=== PATIENT | female | born 1985 | race Caucasian/White ===

== ENCOUNTER 2020-06-12 22:19 | Emergency (ER) | payer OTHER, SELFPAY ==
[2020-06-12 22:43] VITALS: BP 153/53; PULSE 78; RESP 16; TEMP 37.1; O2SAT 98; BMI 18.8
--- NOTE | 2020-06-13 00:30 | ED.GENADULT ---
HPI - General Adult General Chief complaint: General Medical Stated complaint: fever Time Seen by Provider: 06/12/20 23:09 Source: patient Mode of arrival: ambulatory Limitations: language barrier History of Present Illness HPI narrative: 35 y/o female with no PMH presents with tiredness, intermittent fevers, dry cough after exposure to her parents who were both found to be COVID positive. She states she last had fever 2 days ago. She took tylenol and it improved. She denies productive cough, chest pain, abd pain, N/V/D. Has not gotten a flu vaccine this year. complaint: Flu-like symptoms Onset (ago): day(s) (2) Location: chest Radiation: non-radiation Severity: moderate Quality: aching Pain Consistency: intermittent Relieving factors: rest Exacerbating factors: movement Associated symptoms: cough, fever/chills and malaise Treatments prior to arrival: none Related Data Previous Rx's Medication Instructions Recorded hydrocodone-homatropine 5 ml PO Q6H PRN #60 ml 06/13/20 Allergies Allergy/AdvReac Type Severity Reaction Status Date / Time No Known Allergies Allergy Verified 06/12/20 22:42 Review of Systems Review of Systems: Constitutional: + Fever, No Chills ENT/Mouth: + sore throat, No Rhinorrhea, No Swallowing Difficulty Eyes: No Eye Pain, No Swelling, No Redness Cardiovascular: No Chest Pain, No SOB, No Orthopnea, No Edema Respiratory: + Cough, No Sputum, No Wheezing, No dyspnea Gastrointestinal: No Nausea, No Vomiting, No Diarrhea, No abdominal Pain Genitourinary: No Dysuria, No Urinary Frequency, No Hematuria Musculoskeletal: No joint pain, + Myalgias Skin: No Skin Lesions, No rash Neuro: No Weakness, No Numbness, No Dizziness, + Headache Heme/Lymph: No Bruising, No Lymphadenopathy PMFSH Past Medical History Attestation statement: The following information was validated with the patient. Medical History (Updated 06/13/20 @ 00:34 by STONEY Bernardo) No known health problems Social History Social History Advance Directives: No Advance Directives Information Provided: No Physical Exam Vital Signs: Vital Signs: Last Vital Signs Temp 98.7 F 06/12/20 22:43 Pulse 78 06/12/20 22:43 Resp 16 11/16/20 22:43 BP 153/53 H 11/16/20 22:43 Pulse Ox 98 06/12/20 22:43 Body Mass Index 18.8 Appearance: Alert. Oriented X3. No acute distress. Eyes: Pupils equal, round and reactive to light. ENT: Pharynx normal. Neck: Normal inspection. Neck supple. CVS: Normal heart rate and rhythm. Pulses normal. Respiratory: No respiratory distress. Breath sounds normal. Abdomen: Soft and nontender. +BS x4 Skin: Skin warm and dry. Normal skin color. Normal skin turgor. No rashes. Extremities: No lower extremity edema. Neuro: Oriented X 3. No motor deficit. No sensory deficit. Course Course Course Narrative: 35 y/o presenting with COVID symptoms after known exposure. She is vitally stable and appears non-toxic. Will check COVID swab. Reevaluation(s) Reevaluation #1: COVID positive. No need for further workup given her vitals are normal and her exam is benign. Patient counseled. Stable for discharge. Medical Decision Making Lab Data Labs: Lab Results 06/12/20 Range/Units 23:44 Coronavirus (PCR) POSITIVE A (Negative) Influenza Type A (PCR) NEGATIVE (Negative) Influenza Type B (PCR) NEGATIVE (Negative) RSV RNA Qual (PCR) NEGATIVE (Negative) Critical Care Time Critical Care Time Critical Care Time: No Discharge Plan Discharge Clinical Impression: COVID-19 Patient Disposition: Home, Self-Care Instructions: COVID-19 (Coronavirus Disease 2019) (ED) Additional Instructions: Your swab today showed that you are COVID positive. Your vital signs are normal and your lungs are clear. Stay home and do not go out in public. Take over the counter cold/flu medications as needed for your symptoms. Follow up with your doctor. If you develop difficulty breathing, shortness of breath, or chest pain call 911 or come back to the ER for further evaluation. Prescriptions: New hydrocodone-homatropine 5-1.5 mg/5 mL syrup 5 ml PO Q6H PRN (Reason: cough) Qty: 60 RF: 0 Print Language: Ivorian
[2020-06-13 00:44] LABS: Influenza A PCR NEGATIVE (Negative); Influenza B PCR NEGATIVE (Negative); Resp Syncy Virus RNA Qual PCR NEGATIVE (Negative)
[2020-06-13 00:57] LABS: SARS COV2 PCR INHOUSE POSITIVE (Negative)
--- NOTE | 2020-06-13 01:01 | PC.NURSE ---
GIVEN WATER PER PATIENT REQUEST.
== END 2020-06-13 01:15 | disposition home or self-care (01) ==
PROVIDERS: Physician Assistant; Emergency Provider Student in an Organized Health Care Education/Training Program
DX: U07.1 COVID-19 (principal)
CPT/HCPCS: 0241U; 99283